=== PATIENT | female | born 1990 | race Caucasian/White ===

== ENCOUNTER 2022-11-06 01:48 | Emergency (ER) | payer MEDICAID ==
[~2022-11-06] VITALS: Ht 167.6 cm; Wt 108.9 kg
[2022-11-06 02:15] VITALS: BP 136/76
--- NOTE | 2022-11-06 02:18 | NUR ---
TO LOBBY A/W BED AMBULATORY
== END 2022-11-06 04:31 | disposition home or self-care (01) ==
LOC: MED 01:48
DX: M54.50 Low back pain, unspecified (principal); Z53.21 Procedure and treatment not carried out due to patient leaving prior to being seen by health care provider